=== PATIENT | female | born 1935 | race Two or more races ===

== ENCOUNTER 2020-04-11 11:08 | Emergency (ER) | payer OTHER ==
[~2020-04-11] VITALS: Ht 154.9 cm; Wt 64.9 kg
[2020-04-11] MEDS ORDERED: AVAPRO150 MG (12:20)
[2020-04-11] MEDS ORDERED: LIPITOR20 MG (12:21)
[2020-04-11] MEDS ORDERED: FENOFIBRATE40 MG (12:21)
[2020-04-11] MEDS ORDERED: SYMBICORT 16010.2 GM IH (15:52)
[2020-04-11] MEDS ORDERED: TESSALON PERLE100 M1 PO (15:52)
[2020-04-11] MEDS ORDERED: AIRBORNE EFFER1 EACH PO (15:52)
[2020-04-11] MEDS ORDERED: MUCINEX DM ER1 EAC1 PO (15:52)
== END 2020-04-11 17:05 | disposition home or self-care (01) ==
LOC: ER 11:08
DX: U07.1 COVID-19 (principal); R05 Cough; R07.0 Pain in throat